=== PATIENT | female | born 1955 | race Caucasian/White ===

== ENCOUNTER 2017-07-01 14:22 | Outpatient (CLI) | payer BC | END 2017-07-01 14:23 | disposition home or self-care (01) | LOC: BICMAMMO 14:22 | PROVIDERS: ATTEND Internal Medicine | DX: Z12.31 Encounter for screening mammogram for malignant neoplasm of breast (principal); M81.0 Age-related osteoporosis without current pathological fracture; M85.88 Other specified disorders of bone density and structure, other site | CPT/HCPCS: 77063; 77067; 77080 ==

== ENCOUNTER 2018-09-15 13:02 | Outpatient (CLI) | payer BC ==
--- NOTE | 2018-09-15 13:31 | RAD ---
XR Lumbar Spine 2 Or 3 View History: Low back pain after fall Comparison: None. Findings: Mild levoscoliosis. Right upper quadrant surgical clips. No acute fracture. Moderate facet arthropathy on the left at L3/L4 and bilateral L4/L5 and L5/S1. Posterior paraspinal soft tissues are unremarkable. Mild vascular calcifications. Impression: Low-grade levoscoliosis. No acute fracture or malalignment.
--- NOTE | 2018-09-15 13:33 | RAD ---
AP view pelvis history: Fall with pain. AP view pelvis demonstrates no evidence of a pelvic fractures, subluxations or bony lesions. IMPRESSION: unremarkable AP view pelvis.
--- NOTE | 2018-09-15 13:53 | RAD ---
SI JOINTS 3 VIEWS: HISTORY: Low back pain. FINDINGS/IMPRESSION: SI joints appear symmetric. Mild degenerative sclerosis seen bilaterally, slightly more prominent on the right. POS: [facility]
== END 2018-09-15 13:03 | disposition home or self-care (01) ==
LOC: BICRAD 13:02
PROVIDERS: ATTEND Internal Medicine
DX: M54.5 Low back pain (principal); M53.3 Sacrococcygeal disorders, not elsewhere classified; M41.9 Scoliosis, unspecified; W19.XXXA Unspecified fall, initial encounter
CPT/HCPCS: 72100; 72170; 72202

== ENCOUNTER 2018-09-20 07:45 | Outpatient (CLI) | payer BC ==
--- NOTE | 2018-09-20 11:00 | MRI ---
MRI LUMBAR SPINE: 09/20/2018 PROVIDED CLINICAL HISTORY: Back pain. FINDINGS: Five lumbar vertebral bodies are assumed. Lumbar alignment appears normal. Vertebral body heights a ppear preserved. No focal concerning regional marrow signal abnormality is evident. The visualized extraspinal soft tissues appear unremarkable, with the exception of incompletely visualized and incom pletely characterized T2 hyperintensity involving the right kidney, statistically reflecting a cyst. The conus medullaris is normal in signal and terminates at an appropriate level. At L1-L2, there is no significant central canal or foraminal narrowing apparent. At L2-L3, there is no significant central canal or foraminal narrowing apparent. At L3-L4, there is mild bilateral facet arthritis without significant central canal or foraminal narr owing apparent. At L4-L5, there is bilateral facet arthritis and a broad-based disk bulge. There is no significant c entral canal or foraminal narrowing apparent. At L5-S1, there is bilateral facet arthritis and a broad-based disk bulge, without significant centra l canal or foraminal narrowing apparent. 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 IMPRESSION: Lower lumbar spine facet degenerative changes without evidence for significant central canal or jaime inal narrowing. POS: [facility]
== END 2018-09-20 07:46 | disposition home or self-care (01) ==
LOC: SCSMRI 07:45
PROVIDERS: ATTEND Internal Medicine
DX: M51.36 Other intervertebral disc degeneration, lumbar region (principal); M47.816 Spondylosis without myelopathy or radiculopathy, lumbar region
CPT/HCPCS: 72148

== ENCOUNTER 2019-01-09 08:43 | Outpatient (CLI) | payer MEDICARE ==
--- NOTE | 2019-01-09 13:17 | MMO ---
Bilateral MAMMO Bilat Screen DDI+SKIP. CLINICAL HISTORY: Patient is 63 years old and is seen for screening. The patient has the following family history of breast cancer: maternal aunt. The patient has no personal history of cancer. The patient has a history of right Cyst Aspiration in 2000 - benign. VIEWS: The views performed were: bilateral craniocaudal with tomosynthesis and bilateral mediolateral oblique with tomosynthesis. FILMS COMPARED: The present examination has been compared to prior imaging studies performed at [facility] on 05/18/2014, 09/17/2015, 09/20/2015 and 07/01/2017. This study has been interpreted with the assistance of computer-aided detection. MAMMOGRAM FINDINGS: There are scattered fibroglandular densities. Benign calcifications are noted bilaterally. There are no suspicious masses, suspicious calcifications, or new areas of architectural distortion. IMPRESSION: THERE IS NO MAMMOGRAPHIC EVIDENCE OF MALIGNANCY. A ROUTINE FOLLOW-UP MAMMOGRAM IN 1 YEAR IS RECOMMENDED. THE RESULTS OF THIS EXAM WERE SENT TO THE PATIENT. ACR BI-RADS Category 2 - Benign finding MAMMOGRAPHY NOTE: 1. A negative mammogram report should not delay a biopsy if a dominant of clinically suspicious mass is present. 2. Approximately 10% to 15% of breast cancers are not detected by mammography. 3. Adenosis and dense breasts may obscure an underlying neoplasm. Reported by: BRADLEY FRANCES MD Electonically Signed: [id number]
== END 2019-01-09 08:44 | disposition home or self-care (01) ==
LOC: BICMAMMO 08:43
PROVIDERS: ATTEND Internal Medicine
DX: Z12.31 Encounter for screening mammogram for malignant neoplasm of breast (principal); Z91.89 Other specified personal risk factors, not elsewhere classified; Z80.3 Family history of malignant neoplasm of breast
CPT/HCPCS: 77063; 77067